=== PATIENT | female | born 1990 | race Caucasian/White ===

== ENCOUNTER 2016-07-15 14:54 | Inpatient (IN) | payer OTHER ==
[~2016-07-15] VITALS: Ht 154.9 cm; Wt 51.3 kg
[2016-07-15 16:15] LABS: HEMOGLOBIN 9.8 gm/dl (12.3-15.3); RED BLOOD COUNT 3.13 M/UL (4.00-5.10); WHITE BLOOD COUNT 15.3 K/UL (4.5-11.0)
[2016-07-16 02:51] LABS: HEMOGLOBIN 9.4 gm/dl (12.3-15.3)
== END 2016-07-17 12:00 | disposition home or self-care (01) | DRG 775 ==
LOC: GENOP 14:54 → OB 16:05
PROVIDERS: ADMIT Obstetrics & Gynecology
PROC: 10E0XZZ Delivery of Products of Conception, External Approach (ICD-10-PCS; principal; 2016-07-15)
PROC: 3E0234Z Introduction of Serum, Toxoid and Vaccine into Muscle, Percutaneous Approach (ICD-10-PCS; 2016-07-17)
DX: O99.324 Drug use complicating childbirth (principal); O99.334 Smoking (tobacco) complicating childbirth; F17.210 Nicotine dependence, cigarettes, uncomplicated; F19.10 Other psychoactive substance abuse, uncomplicated; Z3A.37 37 weeks gestation of pregnancy; Z37.0 Single live birth; Z23 Encounter for immunization
CPT/HCPCS: 36415; 80307; 81001; 82800; 83518; 85014; 85018; 85025; J0290; J1580; J2590; J2795; J3010; J3430; J7030; J7050; J7120